=== PATIENT | female | born 1970 | race Caucasian/White ===

== ENCOUNTER → 2023-10-06 07:31 | Outpatient (REF) | payer OTHER, SELFPAY | LOC: HWWDC 07:31 | PROVIDERS: ATTENDING PHYSICIAN Obstetrics & Gynecology; FAMILY PHYSICIAN Family Medicine | DX: Z12.31 Encounter for screening mammogram for malignant neoplasm of breast (principal) | CPT/HCPCS: 77063; 77067 ==

== ENCOUNTER 2024-04-21 06:55 | Day surgery (SDC) | payer SELFPAY, OTHER ==
[2024-04-21] VITALS (8 sets, daily range): BP systolic 0–130; BP diastolic 72–82; BMI 18.8
--- NOTE | 2024-04-21 09:00 | W.SUR.PREOP ---
Pre-Operative Surgical Note
-
I have examined this patient prior to the performance of the scheduled procedure.
The patient's condition is unchanged from the time of the current History and
Physical and the patient is able to undergo the scheduled procedure.
--- NOTE | 2024-04-21 09:00 | HP.FOC2 ---
Focused History & Physical
Chief Complaint
HPI:
Chief Complaint: Umbilical hernia
HPI / Indication for Planned Procedure: Patient is a 53-year-old female recently seen in outpatient general surgical evaluation secondary to a small bump present along the superior aspect of her umbilical stalk. It is slightly increased in size
over the years. Physical examination confirmed the presence of a small, palpable supraumbilical hernia fascial defect likely 1 cm smaller. She presents today for scheduled operative correction with concomitant abdominoplasty with plastic surgery.
Relevant Past Medical History: Other (Hypothyroidism, migraines)
Relevant Social History: Negative
Relevant Family History: Negative
Relevant Past Surgical History: Positive for (, wisdom teeth)
Review of Systems
Review of Pertinent Systems: All Systems Negative
Medication
See Medication form for detailed medications: Yes
Medication List (including Herbals & OTC):
cholecalciferol (vitamin D3) 125 mcg (5,000 unit) tablet (Vitamin D3) 125 mcg PO DAILY 04/15/24
levothyroxine 88 mcg tablet (Synthroid) 88 mcg PO DAILY 04/15/24
magnesium 250 mg tablet 250 mg PO DAILY 04/15/24
multivitamin 1 cap PO DAILY 04/15/24
Medications Reviewed: Yes
Allergies and Reactions
Patient has Allergies: No
Noted Allergies and Reactions:
Allergy/AdvReac Type Severity Reaction Status Date / Time
No Known Allergies Allergy Verified 04/21/24 08:57
Pertinent Physical Exam
All Other Systems: Negative
Head/Neck: Normal
Lungs: Normal
Heart: Normal
Abdomen: Other (Reducible umbilical hernia, protrusion just along superior aspect of umbilical stalk)
Extremities: Normal
Neurological: Normal
Diagnosis / Assessment
53-year-old female with umbilical hernia presenting for operative correction with concomitant abdominoplasty
Plan / Procedure
Open umbilical herniorrhaphy
Anesthesia/Sedation to be done by Anesthesia Provider: Yes
[2024-04-21] MEDS: TYLENOL 1000 MG PO (09:10)
[2024-04-21] MEDS: NORMOSOL-R/PLASMALYTE-A 1000 IV (09:14)
--- NOTE | 2024-04-21 10:43 | W.IMMPOSTOP ---
Addendum entered and electronically signed by Sunny Campoverde MD 04/21/24 10:48:
#[id number]
Original Note:
Surgical Immed Post Op Note
-
Primary Surgeon: Nirali
Assisting Surgeon: None
Pre-op Diagnosis: UH
Post-op Diagnosis: UH 1cm
Procedure Performed: Primary repair UH
Anesthesia Type: GETA
Specimen / Cultures: none
Estimated Blood Loss: 4mL for this portion of procedure
Complications: none immediate
Operative Findings: Subcentimeter fascial defect at umbilicus containing preperitoneal fat. Fascial edges cleared. Primary repair with 3 simple interrupted 0 PDS sutures
--- NOTE | 2024-04-21 14:23 | W.IMMPOSTOP ---
Surgical Immed Post Op Note
-
Primary Surgeon: SUMAN Altman MD
Assisting Surgeon:
Pre-op Diagnosis: Unacceptable cosmetic appearance, diastases recti
Post-op Diagnosis: Same
Procedure Performed: Limited incision abdominoplasty, diastases repair
Anesthesia Type: General
Specimen / Cultures: None
Estimated Blood Loss: 30 cc
Complications: None
Operative Findings: As expected
--- NOTE | 2024-04-21 14:24 | OR.RPT ---
Operative Report
Operative Report
Date of surgery: 04/21/2024
Surgeon: SUMAN Altman MD
Preoperative diagnosis: Unacceptable cosmetic appearance, diastases recti
Postoperative diagnosis: Same
Procedure:
1. Limited incision abdominoplasty
2. Diastases recti repair
Anesthesia: General
Complications: None
EBL: 30 cc
Indications for procedure: Patient is a 53 female status post prior pregnancies and who presented with an umbilical hernia and a plan for repair with Dr. Campoverde. Due to the prior pregnancies, she was left with skin excess as well as
diastases recti. She she desired repair via abdominoplasty. We discussed her options at length. Given the focal skin excess and diastases at and below the umbilicus, as well as the high [place] umbilical position, she made a good candidate for a
mini open limited incision abdominoplasty and diastases repair. The limitations of this procedure were discussed at length including the fact that it intrinsically removed less skin than a full abdominal plasty, but resulted in fewer less
conspicuous scarring. Umbilical position will be moved down, we anticipate will still be cosmetically acceptable. Additional risks include wound healing complications, seroma, hematoma, infection and recurrent skin laxity and diastases. She
understood these was decided proceed and consented accordingly
Procedure in detail: Patient was identified preoperatively and the surgical site was confirmed to be of the abdomen. All questions were answered and consents were confirmed. Patient was then taken back to the operating placed upon the table.
Anesthesia was induced and the patient was prepped and draped in the usual sterile fashion using combination of ChloraPrep and Betadine solutions. Timeout for patient safety was performed was confirmed and preoperative antibiotics have been
administered and bilateral SCDs were in place. 1% lidocaine with epinephrine was injected in the proposed lower abdominal incisional markings. Procedure began with the use of a 15 blade to incise the markings. Dissection continued with Bovie
electrocautery down to level of fascia releasing the scar. This continued superiorly to the level of the umbilicus. At this point Dr. Campoverde was called into the case in order to perform the umbilical hernia repair. His operative report
will be dictated separately. As part of his repair, he took the umbilicus and stalk off of the abdominal wall fascia as planned.
After Dr. Campoverde was able to reduce the umbilical hernia and perform primary repair, I returned the case perform the rectus diastases repair. A series of 0 PDS sutures were placed in interrupted [id number] buried fashion thereby imbricating
the hernia repair. These began just superior to the umbilicus and ran inferiorly down to the level of the pubic ramus. A 0 PDS barbed running suture was then used to oversew the diastases repair. Bilateral T AP blocks were performed with dilute
Marcaine and a blunt needle. 2 drains were left in the subcutaneous space. Vicryl was used to place the umbilicus that is new position at the level of the iliac crests. This was approximately 3 cm lower than its [place] position. This allowed for
correction of the supraumbilical skin laxity. A series of 3-0 PDS were used to further inset the umbilicus to the abdominal wall fascia. The skin flap was then split on the midline and the relative skin redundancy was evaluated with the patient in
a slightly flexed position. A tension-free closure was performed using 2-0 Vicryl as well as 3-0 PDS sutures. The sutures incorporated fascia into the deep closure to prevent scar migration. The remainder the skin was closed with INSORB stapler
and a 3-0 running [place] Derm. Drains were sutured in place with 2-0 Prolene. Patient tolerated procedure well performed out complication, all counts were correct at the end the case. Wounds were dressed with ointment dry gauze and Tegaderms.
Abdominal binder was placed. She was extubated taken the PACU for further care.
== END 2024-04-21 14:13 | disposition home or self-care (01) ==
LOC: SDS 06:55
PROVIDERS: ATTENDING PHYSICIAN Surgery; REFERRING PHYSICIAN Surgery Plastic and Reconstructive Surgery
DX: Z41.1 Encounter for cosmetic surgery (principal); K42.9 Umbilical hernia without obstruction or gangrene; M62.08 Separation of muscle (nontraumatic), other site
CPT/HCPCS: 49591; 15847; 93005

== ENCOUNTER → 2024-10-08 08:10 | Outpatient (REF) | payer OTHER, SELFPAY | LOC: HWWDC 08:10 | PROVIDERS: ATTENDING PHYSICIAN Obstetrics & Gynecology; FAMILY PHYSICIAN Family Medicine | DX: Z12.31 Encounter for screening mammogram for malignant neoplasm of breast (principal) | CPT/HCPCS: 77063; 77067 ==